=== PATIENT | female | born 1975 | race Caucasian/White ===

== ENCOUNTER 2019-04-02 15:33 | Emergency (ER) | payer MEDICAID, SELFPAY ==
[2019-04-02 15:42] VITALS: BP 133/74; PULSE 74; RESP 16; TEMP 36.8; O2SAT 100
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
--- NOTE | 2019-04-02 16:21 | DI.RAD_ITS ---
SYMPTOM/DIAGNOSIS: ANIMAL BITE RIGHT WRIST: Four views. No acute bone, joint or soft tissue abnormality is identified. IMPRESSION: No acute abnormality.
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
--- NOTE | 2019-04-02 19:28 | NUR.NOTE ---
reported animal bite to Zackery Simpson [phone], faxed for to [facility] Clerk [phone].Nursing Note:
== END 2019-04-02 18:34 | disposition home or self-care (01) ==
PROVIDERS: Emergency Provider Physician Assistant; PCP Family Medicine
DX: S61.451A Open bite of right hand, initial encounter (principal); S81.051A Open bite, right knee, initial encounter; W54.0XXA Bitten by dog, initial encounter
CPT/HCPCS: 99283; 73110; 99282; L3807